=== PATIENT | female | born 1945 | race Caucasian/White ===

== ENCOUNTER → 2017-03-26 | Outpatient (CLI) | payer MEDICARE, OTHER ==
[~2017-03-26] MED LIST: ACIPHEX20 MG PO; ASPIRIN325 MG PO; CLONIDINE HCL0.1 MG PO; COREG 25MG TAB25 MG PO; ELAVIL 10 MG TA10 MG PO; HYZAAR 100-12.1 EACH PO; LIPITOR TAB 2020 MG PO; NEURONTIN 300300 MG PO; TEGRETOL200 MG PO; TYLENOL W/CODEIN1 E1 PO
== END ==
LOC: RAD 16:06
DX: M54.9 Dorsalgia, unspecified (principal); M54.6 Pain in thoracic spine; M54.5 Low back pain; M25.561 Pain in right knee; M25.562 Pain in left knee; M47.814 Spondylosis without myelopathy or radiculopathy, thoracic region; M25.862 Other specified joint disorders, left knee; M43.12 Spondylolisthesis, cervical region; M51.36 Other intervertebral disc degeneration, lumbar region; M50.30 Other cervical disc degeneration, unspecified cervical region; M43.8X2 Other specified deforming dorsopathies, cervical region
CPT/HCPCS: 72040; 72072; 72100; 73562

== ENCOUNTER → 2017-04-25 | Outpatient (CLI) | payer MEDICARE, OTHER | LOC: LAB 16:49 | PROVIDERS: Internal Medicine Nephrology | DX: R06.02 Shortness of breath (principal); N18.3 Chronic kidney disease, stage 3 (moderate); J98.09 Other diseases of bronchus, not elsewhere classified | CPT/HCPCS: 36415; 71020; 80048; 82043; 82570; 82728; 83540; 83550 ==

== ENCOUNTER 2021-03-07 16:10 | Emergency (ER) | payer MEDICARE ==
[~2021-03-07 16:10] MED LIST changes: +ALDACTONE25 MG PO; +AMLODIPINE BESY10 MG PO; +ARICEPT10 MG PO; +ASPIRIN CHEWABL81 MG PO; -ASPIRIN325 MG PO; +CATAPRES0.3 MG PO; -CLONIDINE HCL0.1 MG PO; +CLOPIDOGREL75 MG PO; -COREG 25MG TAB25 MG PO; +COREG 3.125M3.125 MG PO; +HYDRALAZINE HCL50 MG PO; +MINIPRESS1 MG PO; -NEURONTIN 300300 MG PO; +NEURONTIN400 MG PO; +NEXIUM20 MG PO; +OMNICEF 300 MG300 MG PO; +PROBIOTIC1 EAC1 PO; +TAMIFLU 75 MG C75 MG PO; +TAMIFLU75 MG PO; -TYLENOL W/CODEIN1 E1 PO; +TYLENOL WITH C1 EACH PO; +ZOFRAN ODT 4 MG4 MG SL
== END 2021-03-07 17:50 | disposition left against medical advice (07) ==
LOC: ER1 16:10
DX: Z53.21 Procedure and treatment not carried out due to patient leaving prior to being seen by health care provider (principal)

== ENCOUNTER → 2021-05-10 | Outpatient (CLI) | payer MEDICARE | LOC: KOH-I 13:14 | DX: M25.552 Pain in left hip (principal) | CPT/HCPCS: 73502 ==

== ENCOUNTER 2021-11-06 15:21 | Emergency (ER) | payer MEDICARE ==
[~2021-11-06] VITALS: Ht 152.4 cm; Wt 68.0 kg
[~2021-11-06 15:21] MED LIST changes: -ALDACTONE25 MG PO; -CATAPRES0.3 MG PO; -HYDRALAZINE HCL50 MG PO; -LIPITOR TAB 2020 MG PO; -TEGRETOL200 MG PO
[2021-11-06 16:04] LABS: HEMOGLOBIN 12.6 gm/dl (12.3-15.3); RED BLOOD COUNT 4.09 M/UL (4.00-5.10); WHITE BLOOD COUNT 6.7 K/UL (4.5-11.0)
[2021-11-06 16:26] LABS: BUN/CREATININE RATIO 13 (0-10)
[2021-11-07 01:55] LABS: HEMOGLOBIN 12.5 gm/dl (12.3-15.3); RED BLOOD COUNT 4.06 M/UL (4.00-5.10)
[2021-11-07 02:26] LABS: BUN/CREATININE RATIO 16 (0-10)
[2021-11-07] MEDS ORDERED: BENTYL 10MG CAP10 MG PO ×2 (08:55→10:54)
[2021-11-07] MEDS ORDERED: ACETAMINOPHEN-1 EAC1 PO (08:55)
[2021-11-07] MEDS ORDERED: TEGRETOL200 MG PO ×2 (10:41→18:20)
[2021-11-07] MEDS ORDERED: DILTIAZEM 24HR180 M1 PO (10:47)
[2021-11-07] MEDS ORDERED: OMEGA-31000 MG PO (10:48)
[2021-11-07] MEDS ORDERED: ALENDRONATE SOD70 MG PO (10:48)
[2021-11-07] MEDS ORDERED: AMITRIPTYLINE H25 MG PO (10:48)
[2021-11-07] MEDS ORDERED: FEXOFENADINE H180 MG PO (10:49)
[2021-11-07] MEDS ORDERED: ANASTROZOLE1 MG PO (10:49)
[2021-11-07] MEDS ORDERED: CALCIUM + VITA1 EACH PO (10:50)
[2021-11-07] MEDS ORDERED: MELATONIN5 M2 PO (10:50)
[2021-11-07] MEDS ORDERED: NITROSTAT0.4 MG SL (10:50)
[2021-11-07] MEDS ORDERED: KENALOG CREAM 015 GM TOP (10:51)
[2021-11-07] MEDS ORDERED: COREG 25MG TAB25 MG PO (11:06)
[2021-11-07] MEDS ORDERED: CLONIDINE HCL0.3 MG PO (18:17)
[2021-11-07] MEDS ORDERED: LIPITOR40 MG PO (18:24)
[2021-11-07] MEDS ORDERED: HYDRALAZINE HCL50 MG PO (23:20)
[2021-11-07] MEDS ORDERED: ALDACTONE25 MG PO (23:22)
== END 2021-11-07 12:35 | disposition home or self-care (01) ==
LOC: ER1 15:21 → CDU 19:13 → ER1 19:13 → CDU 19:13
PROVIDERS: Internal Medicine; Physician Assistant
DX: R10.13 Epigastric pain (principal); I12.9 Hypertensive chronic kidney disease with stage 1 through stage 4 chronic kidney disease, or unspecified chronic kidney disease; N17.9 Acute kidney failure, unspecified; I25.10 Atherosclerotic heart disease of native coronary artery without angina pectoris; Z20.822 Contact with and (suspected) exposure to COVID-19; I16.0 Hypertensive urgency; E78.5 Hyperlipidemia, unspecified; K21.9 Gastro-esophageal reflux disease without esophagitis; Z95.5 Presence of coronary angioplasty implant and graft; Z95.0 Presence of cardiac pacemaker; Z87.19 Personal history of other diseases of the digestive system; Z90.49 Acquired absence of other specified parts of digestive tract
CPT/HCPCS: 71045; 80053; 81001; 82150; 82550; 82553; 83605; 83690; 83735; 83874; 84484; 85025; 85027; 93005; 96374; 96375; 99285; C9113; J0360; J2270; J2405; U0002